=== PATIENT | female | born 1950 | race Caucasian/White ===

== ENCOUNTER → 2018-10-26 08:38 | Outpatient (CLI) | payer MEDICARE, OTHER, BC, SELFPAY ==
--- NOTE | 2018-10-26 | DI.MG.S_ITS ---
BILATERAL DIGITAL SCREENING MAMMOGRAM 3D/2D WITH CAD: 10/26/2018 CLINICAL: Routine screening. Family history of breast cancer. Comparison is made to exams dated: 10/05/2017 mammogram, 09/15/2016 mammogram, and 09/08/2015 mammogram - [facility]. The tissue of both breasts is extremely dense, which lowers the sensitivity of mammography. Current study was also evaluated with a Computer Aided Detection (CAD) system. There are benign calcifications in both breasts. There are mole markers on both breasts. No significant masses, calcifications, or other findings are seen in either breast. There has been no significant interval change. IMPRESSION: There is no mammographic evidence of malignancy. A 1 year screening mammogram is recommended. This exam was interpreted at Station ID: [id number]. NOTE: For mammograms, a report in lay terms will be sent to the patient. Approximately 15% of breast malignancies will not be visualized mammographically. In the management of a palpable breast mass, a negative mammogram must not discourage biopsy of a clinically suspicious lesion. Electronically Signed By: Harsha moore/shaquille:10/26/2018 19:16:55 letter sent: Normal Exam ACR BI-RADS Category 2: Benign Finding(s) 3342F
== END ==
PROVIDERS: Family Provider Family Medicine; PCP Family Medicine; Visit Provider Family Medicine
DX: Z12.31 Encounter for screening mammogram for malignant neoplasm of breast (principal); Z80.3 Family history of malignant neoplasm of breast
CPT/HCPCS: 77063; 77067

== ENCOUNTER 2019-04-16 09:37 | Day surgery (SDC) | payer MEDICARE, OTHER, SELFPAY ==
[2019-04-16] VITALS (9 sets, daily range): BP systolic 97–156; BP diastolic 43–72; PULSE 64–70; RESP 12–17; TEMP 35.8–36.5; O2SAT 95–99; BMI 28.0
--- NOTE | 2019-04-16 10:01 | PM.HP.1 ---
History of Present Illness Date Patient Seen: 04/16/19 Time Patient Seen: 10:02 Chief complaint: [id number] Narrative: 68-year-old woman presents for screening colonoscopy. Last colonoscopy 10 years ago no polyps detected. No family history of colon or rectal cancers. No family history of colon polyps. Prep went well No intestinal complaints Patient History Medical History (Updated 04/16/19 @ 10:03 by Porfirio Ayers MD) Diabetes mellitus (Acute) Hypertension (Acute) Surgical History (Updated 04/16/19 @ 10:04 by Porfirio Ayers MD) Hx of cataract surgery (Acute) Social History household members: spouse Meds Home Medications Medication Instructions Recorded Confirmed Type OMEPRAZOLE (Prilosec) 20 mg PO Q DAY #1 03/12/07 History [Lopressor] 25 mg PO SEE INSTRUCTIONS #30 06/27/16 Rx atorvastatin 20 mg PO BEDTIME 04/16/19 04/16/19 History losartan 50 mg PO DAILY 04/16/19 04/16/19 History metformin 500 mg PO BID 04/16/19 04/16/19 History Allergies Allergy/AdvReac Type Severity Reaction Status Date / Time Penicillins [PENICILLINS] Allergy Intermediate Verified 04/16/19 09:54 Review of Systems Constitutional Constitutional: Denies fever(s) Eyes Eyes: Denies bulging eyes ENT Ears, Nose, Mouth, and Throat: No lip swelling Cardiovascular Cardiovascular: Denies generalize swelling Respiratory Respiratory: Denies stridor Gastrointestinal Gastrointestinal: Denies coffee ground emesis Musculoskeletal Musculoskeletal: Denies loss of height Integumentary/Breasts Skin/Breast: Denies wounds Neurologic Neurologic: Denies abnormal speech and Denies confusion Psychiatric Psychiatric: Denies confusion Endocrine Endocrine: Denies deepening of the voice Hematologic/Lymphatic Hematologic/Lymphatic: Denies lymphadenopathy Allergic/Immunologic Allergic/Immunologic: Denies lip swelling Exam Const General: cooperative and healthy appearing Orientation: alert HENMT Head: normal to inspection Nose: nares normal Mouth: oral mucosae normal and lip normal Eyes Eyelids: eyelids normal Conjunctivae: conjunctivae normal Sclera: sclerae normal Neck Neck: supple and other (No thyromegally) Chest Chest: other (LCTAB , regular respiratory effort) Cardio Rhythm: regular rhythm Heart Sounds: S1 normal, S2 normal, no gallops, no murmurs and no rubs GI Other: Abdomen soft nontender nondistended Skin General: no rashes or lesions noted Neuro General: alert and awake Psych Appearance: grossly normal Affect: normal affect Assessment & Plan Assessment & Plan narrative: 68-year-old woman without history of colon polyps or family history of colon cancer presents 10 years after last screening colonoscopy Plan for screening colonoscopy today Risks and benefits including risk of , hypoxia, missed lesion, perforation all discussed All questions answered Patient ready to proceed
[2019-04-16] MEDS: SODIUM CHLORIDE 0.9% 1,000 ML 200 ML IV ×2 (10:22→11:26)
[2019-04-16] MEDS: GLUCAGON,HUMAN RECOMBINANT 1 MG/ML VIAL IV (11:32)
--- NOTE | 2019-04-16 12:09 | PM.OP.ENDO ---
Operative Date/Time/Diagnoses Date of procedure: 04/16/19 Time of procedure: 12:09 Pre-op diagnosis: Screening colonoscopy Post-op diagnosis: same Procedure & Clinicians Study performed: Screening colonoscopy -incomplete, to mid right colon, unable to visualize cecum. Same procedure as scheduled: Yes Indications: 68-year-old female 10 years out from last screening colonoscopy -no personal or family history of polyps or colorectal cancer Surgeon: Porfirio Ayers Procedure Notes SCOAP/Timeout: Completed Scope withdrawal time: NA Sedation minutes: 60 Impression: Patient was brought to the endoscopy suite time-out was completed. She was sedated with fentanyl and midazolam -over the course of what was a lengthy and difficult colonoscopy she received 350 mcg of fentanyl and 14 mg of midazolam. A digital rectal exam was performed without lesion. 160 cm colonoscope was advanced through the folds of the rectum sigmoid colon descending colon transverse colon. She had a very long markedly redundant colon. Upon reaching the hepatic flexure 160 cm of scope length would not reach further. The scope was withdrawn multiple times as far as the sigmoid colon at 1 point and readvanced. This produced some additional scope length to reach what appeared to be the mid right colon. The patient was positioned in the prone position, right and left decubitus position as well as supplying position. During the course of multiple attempts at readvanced. A scope stiffener was used as well. Two assistants were utilized to press on the abdomen to help reduce scope loops. This despite these multiple in the -I was never able to convincingly see the cecum. The scope was slowly withdrawn then -the mucosal surface of the transverse descending and sigmoid colon as well as the rectum are all well visualized. No lesions were identified. Scope was retroflexed in the distal rectum again no lesions were visualized. Prep for the visualized portion of the colon was adequate Recommendations: Colonscopy in 3 years Plan for aftercare: Double contrast barium enema planed Follow up: as needed Disposition: PACU
[2019-04-16] MEDS: MIDAZOLAM 5 MG/5 ML VIAL IV (12:11)
[2019-04-16] MEDS: fentaNYL 250 MCG/5 ML INJ IV (12:11)
== END 2019-04-16 13:28 | disposition home or self-care (01) ==
LOC: ENDO 09:39
PROVIDERS: PCP Family Medicine; Visit Provider Surgery
PROC: 0DJD8ZZ Inspection of Lower Intestinal Tract, Via Natural or Artificial Opening Endoscopic (ICD-10-PCS; CPT 45378; principal; 2019-04-16 10:45)
DX: Z12.11 Encounter for screening for malignant neoplasm of colon (principal); E11.9 Type 2 diabetes mellitus without complications; I10 Essential (primary) hypertension; Z79.84 Long term (current) use of oral hypoglycemic drugs
CPT/HCPCS: G0121; J1610; J2250; J3010

== ENCOUNTER → 2019-04-19 10:06 | Outpatient (CLI) | payer MEDICARE, OTHER, SELFPAY ==
--- NOTE | 2019-04-19 | DI.US.S_ITS ---
PROCEDURE: US CAROTID DOPPLER BI INDICATIONS: POST MENOPAUSAL/HYPERTENSION TECHNIQUE: Color and pulse Doppler interrogation was performed of both carotid systems, with image documentation and velocity measurements. COMPARISON: None. FINDINGS: Stenosis calculations are based on SRU (Society of Radiologists in Ultrasound) criteria. Right side: Brachial blood pressure: 131/76 mm Hg. Common carotid artery peak systolic velocity: 83 cm/sec. Internal carotid artery peak systolic velocity: 101 cm/sec. Internal carotid artery end diastolic velocity: 31 cm/sec. External carotid artery peak systolic velocity: 83 cm/sec. ICA/CCA peak systolic ratio: 1.21. Anderson scale imaging description: There are atherosclerotic plaques noted in the carotid bifurcation and proximal right internal carotid artery. Percent internal carotid artery stenosis: Less than 50% stenosis. Vertebral artery: Flow direction is antegrade. Left side: Brachial blood pressure: 128/75 mm Hg. Common carotid artery peak systolic velocity: 79 cm/sec. Internal carotid artery peak systolic velocity: 99 cm/sec. Internal carotid artery end diastolic velocity: 34 cm/sec. External carotid artery peak systolic velocity: 67 cm/sec. ICA/CCA peak systolic ratio: 1.25. Anderson scale imaging description: There is scattered atherosclerotic plaques identified in the common carotid artery, carotid bifurcation, and proximal right internal carotid artery. Less than 50% reduction in luminal diameter. Percent internal carotid artery stenosis: Less than 50% stenosis.. Vertebral artery: Flow direction is antegrade. 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 Dictated by: Saravanan Junior M.D. on 04/19/2019 at 12:56 Approved by: Saravanan Junior M.D. on 04/19/2019 at 13:04
== END ==
PROVIDERS: PCP Family Medicine; Visit Provider Family Medicine
DX: I65.23 Occlusion and stenosis of bilateral carotid arteries (principal); I10 Essential (primary) hypertension; Z78.0 Asymptomatic menopausal state; R29.890 Loss of height; E11.9 Type 2 diabetes mellitus without complications
CPT/HCPCS: 77080; 93880

== ENCOUNTER → 2019-05-22 10:32 | Outpatient (CLI) | payer MEDICARE, OTHER, SELFPAY ==
--- NOTE | 2019-05-22 10:36 | DI.RAD.S_ITS ---
PROCEDURE: FL BARIUM ENEMA W AIR CONTRAST INDICATIONS: failed colonoscopy COMPARISON: None. 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 No suspicious abdominal calcifications. Visualized solid organ contours are normal in size. No suspicious bony lesions. Colon: There is adequate air-contrast opacification from the rectum to the cecum. No strictures, ulcers, polyps, or masses are seen. Haustral folds are normal in thickness throughout. There is [id number] diverticulosis without acute diverticulitis. No area of diverticular inflammation is suspected IMPRESSION: Throughout the examination no mass lesion is seen nor is there evidence of stricture. The mild to moderate colonic diverticulosis present is not associated with evidence of inflammation. Study allowed visualization through the colon, which is redundant and elongated. Reflux of contrast into the terminal ileum was observed, which appears normal. Dictated by: Ajay Mendes M.D. on 05/22/2019 at 12:16 Approved by: Ajay Mendse M.D. on 05/22/2019 at 12:19
== END ==
PROVIDERS: PCP Family Medicine; Visit Provider Surgery
DX: R93.3 Abnormal findings on diagnostic imaging of other parts of digestive tract (principal); K57.90 Diverticulosis of intestine, part unspecified, without perforation or abscess without bleeding
CPT/HCPCS: 74280

== ENCOUNTER → 2019-11-28 16:01 | Outpatient (CLI) | payer MEDICARE, OTHER, SELFPAY ==
--- NOTE | 2019-11-28 | DI.MG.S_ITS ---
BILATERAL DIGITAL SCREENING MAMMOGRAM 3D/2D WITH CAD: 11/28/2019 CLINICAL: Routine screening. Family history of breast cancer. Comparison is made to exams dated: 10/26/2018 mammogram, 10/05/2017 mammogram, 09/15/2016 mammogram, 09/08/2015 mammogram, and 08/25/2014 mammogram - [facility]. The tissue of both breasts is extremely dense, which lowers the sensitivity of mammography. Current study was also evaluated with a Computer Aided Detection (CAD) system. There are benign calcifications in both breasts. There are mole markers on both breasts. No significant masses, calcifications, or other findings are seen in either breast. There has been no significant interval change. IMPRESSION: There is no mammographic evidence of malignancy. A 1 year screening mammogram is recommended. This exam was interpreted at Station ID: [id number]. NOTE: For mammograms, a report in lay terms will be sent to the patient. Approximately 15% of breast malignancies will not be visualized mammographically. In the management of a palpable breast mass, a negative mammogram must not discourage biopsy of a clinically suspicious lesion. Electronically Signed By: Miguel Ángel gonzáles/shaquille:11/28/2019 22:09:11 letter sent: Normal Exam ACR BI-RADS Category 2: Benign Finding(s) 3342F
== END ==
PROVIDERS: PCP Family Medicine; Referring Provider Family Medicine; Visit Provider Family Medicine
DX: Z12.31 Encounter for screening mammogram for malignant neoplasm of breast (principal); Z80.3 Family history of malignant neoplasm of breast
CPT/HCPCS: 77063; 77067

== ENCOUNTER → 2020-11-03 11:56 | Outpatient (CLI) | payer MEDICARE, BC, SELFPAY ==
--- NOTE | 2020-11-03 | DI.RAD.S_ITS ---
PROCEDURE: XR KNEE LT 3V INDICATIONS: LEFT KNEE PAIN S/P INJURY TECHNIQUE: 3 views of the knee were acquired. COMPARISON: [facility], , KNEE 3V RIGHT, 04/17/2013, 10:32. FINDINGS: Bones: No fractures or dislocations. Note is made of degenerative osteoarthritic joint space narrowing mild in severity at the medial and lateral compartments, and also lateral facet patellofemoral joint moderately severe joint space narrowing with near [id number] articulation laterally. No suspicious bony lesions. Soft tissues: No joint effusion. No suspicious soft tissue calcifications. IMPRESSION: Degenerative changes as discussed with osteoarthritic joint space narrowing mild at the tibial-fibular articulations but moderately severe at the lateral facet of the patellofemoral joint. No trauma Dictated by: Ajay Mendes M.D. on 11/03/2020 at 14:20 Approved by: Ajay Mendes M.D. on 11/03/2020 at 14:21
== END ==
PROVIDERS: PCP Family Medicine; Referring Provider Family Medicine; Visit Provider Family Medicine
DX: M25.562 Pain in left knee (principal); S89.92XA Unspecified injury of left lower leg, initial encounter; X58.XXXA Exposure to other specified factors, initial encounter
CPT/HCPCS: 73562

== ENCOUNTER 2021-02-03 13:15 | Emergency (ER) | payer MEDICARE, BC, SELFPAY ==
[2021-02-03] VITALS (7 sets, daily range): BP systolic 164–185; BP diastolic 73–88; PULSE 66–80; RESP 13–23; TEMP 36.4; O2SAT 97; BMI 28.2
--- NOTE | 2021-02-03 13:29 | DI.RAD.S_ITS ---
PROCEDURE: XR CHEST 2V INDICATIONS: shortness of breath TECHNIQUE: 2 views of the chest were acquired. COMPARISON: [facility], , CHEST 1 VIEW, 06/27/2016, 18:34. FINDINGS: Surgical changes and devices: None. Lungs and pleura: Lungs are clear. No pleural effusions or pneumothorax. Mediastinum: Mediastinal contours are normal. Heart size is normal. Bones and chest wall: No suspicious bony abnormalities. Soft tissues appear unremarkable. IMPRESSION: No evidence acute pulmonary process. Dictated by: Elmer Duong M.D. on 02/03/2021 at 14:26 Approved by: Elmer Duong M.D. on 02/03/2021 at 14:27
[2021-02-03 13:46] LABS: Add Manual Diff / Slide Review NO; Basophils Absolute Auto 0 /uL (0-100); Basophils Percent Auto 0.7 % (0-2); Eosinophils Absolute Auto 100 /uL (0-450); Eosinophils Percent Auto 1.4 % (2-4); Hematocrit 44.2 % (36-46); Hemoglobin 14.8 g/dL (12.0-16.0); Lymphocytes Absolute Auto 1900 /uL (1100-4500); Lymphocytes Percent Auto 25.7 % (25-40); Mean Corpuscular HGB Conc 33.4 % (30-36); Mean Corpuscular Hemoglobin 30.2 PG (26-34); Mean Corpuscular Volume 90.4 fL (80-100); Monocytes Absolute Auto 500 /uL (0-900); Monocytes Percent Auto 6.5 % (3-14); Neutrophils Absolute Auto 4700 /uL (1500-7000); Neutrophils Percent Auto 65.7 % (50-75); Platelet Count 147 X10^3/uL (150-400); Red Blood Cell Count 4.89 X10^6/uL (4.0-5.2); White Blood Cell Count 7.2 X10^3/uL (4.5-11.0)
[2021-02-03 13:55] LABS: Alanine Aminotransferase 23 IU/L (<35); Albumin Globulin Ratio 1.5 (1.0-2.8); Alkaline Phosphatase 101 U/L (38-126); Aspartate Aminotransferase 31 IU/L (14-36); Bilirubin Total 0.6 mg/dL (0.2-1.3); Blood Urea Nitrogen 19 mg/dL (7-17); Calcium 10.3 mg/dL (8.4-10.2); Carbon Dioxide 22 mmol/L (22-32); Chloride 104 mmol/L (98-107); Estimated Glomerular Filt Rate > 60.0 mL/min (>60); Globulin 3.4 g/dL (1.7-4.1); Glucose 171 mg/dL (80-110); HEMOLYSIS < 15 (0-50); Potassium 4.5 mmol/L (3.4-5.1); Sodium 137 mmol/L (137-145); Total Protein 8.4 g/dL (6.3-8.2)
[2021-02-03 14:03] LABS: NT-proBNP (BNP-Adult 18+) 46 pg/mL (<125)
--- NOTE | 2021-02-03 14:58 | ED_ITS ---
HPI - Arrhythmia/Palpitations General Chief Complaint: Arrhythmia/Palpitations Stated Complaint: hx of arrthymia/episode x2 days Time Seen by Provider: 02/03/21 14:34 Source: patient Mode of arrival: Ambulatory Limitations: no limitations History of Present Illness HPI narrative: 70-year-old woman with a history of diabetes, hyperlipidemia, hypertension, acid reflux disease on omeprazole and recently 2 months of m eloxicam for arthritic knee pain presents complaining that ?my body is yelling at me and I need help figuring out what is wrong?. She notes that over the last 5 days she has had an increasing ?brain fog? describes occasional dizziness, 4 days ago she had palpitations in the evening that has since resolved, she has had some chills but specifically denies fever, cough, nausea vomiting diarrhea, chest pain or dysuria. She had her 2nd COVID shot approximately a month ago and did not seem to have significant adverse reaction at the time. She notes no change to bowel habits and specifically no black stools. Related Data Home Medications Medication Instructions Recorded Confirmed OMEPRAZOLE (Prilosec) 20 mg PO Q DAY #1 03/12/07 04/16/19 atorvastatin 20 mg PO BEDTIME 04/16/19 04/16/19 losartan 50 mg PO DAILY 04/16/19 04/16/19 metformin 500 mg PO BID 04/16/19 04/16/19 Allergies Allergy/AdvReac Type Severity Reaction Status Date / Time Penicillins [PENICILLINS] Allergy Intermediate Verified 02/03/21 13:26 Review of Systems Review of Systems Narrative: Remainder of review is otherwise unremarkable Patient History Medical History (Updated 02/03/21 @ 16:57 by Tammy Hoang MD) Acid reflux Diabetes mellitus Hyperlipidemia Hypertension Surgical History (Updated 04/16/19 @ 10:04 by Porfirio Ayers MD) Hx of cataract surgery Social History household members: spouse Smoking Status: Unknown if ever smoked Smoking Status: Unknown if ever smoked alcohol intake frequency: a few times a week Substance Use Type: does not use Exam Narrative Exam Narrative: General: Mildly ill-appearing but in no acute distress. Able to give a complete and coherent history. Well-nourished well-developed HEENT: Moist mucous membranes, normal sclera with reactive pupils, Neck: No JVD, supple Respiratory: Lungs are clear to auscultation, no wheezing no rales no rhonchi. Full and symmetrical air movement Cardiac: Regular rate and rhythm no murmurs no bruits Abdomen: Soft, nontender, good bowel tones, no flank pain Skin: Pale but Warm and dry, no rashes Neurologic: Grossly neurologically intact with no obvious asymmetries or abnormalities Extremities: No trauma, well perfused Psych: Cooperative, appropriate insight and affect Initial Vital Signs Initial Vital Signs: Vital Signs Temperature 97.6 F 02/03/21 13:24 Pulse Rate 80 02/03/21 13:24 Respiratory Rate 15 02/03/21 13:24 Blood Pressure 185/88 H 02/03/21 13:24 Pulse Oximetry 97 02/03/21 13:24 Course Orders Ordered: ED Orders 02/03/21 13:29 XR chest 2V Stat EKG-12 Lead Stat Measure peak expiratory flow ONCE RT Consult Eval and Treat Now 02/03/21 13:34 Complete Blood Count AUTO DIFF Stat Comprehensive Metabolic Panel Stat Lactate (Lactic Acid) Stat NT-proBNP (BNP-Adult 18+) Stat Troponin I Stat Vital Signs Vital signs: Vital Signs - 8 hr 02/03/21 13:24 02/03/21 14:28 02/03/21 14:30 Temperature 97.6 F Pulse Rate 80 72 72 Respiratory Rate 15 23 22 Blood Pressure 185/88 H 182/79 H Pulse Oximetry 97 02/03/21 15:00 Temperature Pulse Rate 68 Respiratory Rate 15 Blood Pressure 173/79 H Pulse Oximetry MDM - Arrhythmia/Palpitations Medical Records Attestation: I reviewed the patient's medical records. Lab Data Attestation: I reviewed the patient's lab results. Result diagrams: 02/03/21 13:34 02/03/21 13:34 Labs: Lab Results 02/03/21 02/03/21 02/03/21 Range/Units 13:34 13:34 13:34 WBC 7.2 (4.5-11.0) X10^3/uL RBC 4.89 (4.0-5.2) X10^6/uL Hgb 14.8 (12.0-16.0) g/dL Hct 44.2 (36-46) % MCV 90.4 (80-100) fL MCH 30.2 (26-34) PG MCHC 33.4 (30-36) % RDW 14.0 (11.6-14.8) % Plt Count 147 L (150-400) X10^3/uL Neut % (Auto) 65.7 (50-75) % Lymph % (Auto) 25.7 (25-40) % [place] % (Auto) 6.5 (3-14) % Eos % (Auto) 1.4 L (2-4) % Baso % (Auto) 0.7 (0-2) % Neut # (Auto) 4700 (7347-6825) /uL Lymph # (Auto) 1900 (0772-0028) /uL [place] # (Auto) 500 (0-900) /uL Eos # (Auto) 100 (0-450) /uL Baso # (Auto) 0 (0-100) /uL Sodium 137 (137-145) mmol/L Potassium 4.5 (3.4-5.1) mmol/L Chloride 104 (98-107) mmol/L Carbon Dioxide 22 (22-32) mmol/L BUN 19 H (7-17) mg/dL Creatinine 0.76 (0.52-1.04) mg/dL Estimated GFR > 60.0 (>60) mL/min BUN/Creatinine Ratio 25.0 H (6-22) Glucose 171 H (80-110) mg/dL Lactate 1.0 (0.7-2.1) mmol/L Calcium 10.3 H (8.4-10.2) mg/dL Total Bilirubin 0.6 (0.2-1.3) mg/dL AST 31 (14-36) IU/L ALT 23 (<35) IU/L Alkaline Phosphatase 101 (38-126) U/L Troponin I (0.01-0.034) ng/mL NT-Pro-B Natriuret Pep 46 (<125) pg/mL Total Protein 8.4 H (6.3-8.2) g/dL Albumin 5.0 (3.5-5.0) g/dL Globulin 3.4 (1.7-4.1) g/dL Albumin/Globulin Ratio 1.5 (1.0-2.8) 02/03/21 Range/Units 13:34 WBC (4.5-11.0) X10^3/uL RBC (4.0-5.2) X10^6/uL Hgb (12.0-16.0) g/dL Hct (36-46) % MCV (80-100) fL MCH (26-34) PG MCHC (30-36) % RDW (11.6-14.8) % Plt Count (150-400) X10^3/uL Neut % (Auto) (50-75) % Lymph % (Auto) (25-40) % [place] % (Auto) (3-14) % Eos % (Auto) (2-4) % Baso % (Auto) (0-2) % Neut # (Auto) (8119-0606) /uL Lymph # (Auto) (8503-1828) /uL [place] # (Auto) (0-900) /uL Eos # (Auto) (0-450) /uL Baso # (Auto) (0-100) /uL Sodium (137-145) mmol/L Potassium (3.4-5.1) mmol/L Chloride (98-107) mmol/L Carbon Dioxide (22-32) mmol/L BUN (7-17) mg/dL Creatinine (0.52-1.04) mg/dL Estimated GFR (>60) mL/min BUN/Creatinine Ratio (6-22) Glucose (80-110) mg/dL Lactate (0.7-2.1) mmol/L Calcium (8.4-10.2) mg/dL Total Bilirubin (0.2-1.3) mg/dL AST (14-36) IU/L ALT (<35) IU/L Alkaline Phosphatase (38-126) U/L Troponin I < 0.012 (0.01-0.034) ng/mL NT-Pro-B Natriuret Pep (<125) pg/mL Total Protein (6.3-8.2) g/dL Albumin (3.5-5.0) g/dL Globulin (1.7-4.1) g/dL Albumin/Globulin Ratio (1.0-2.8) Imaging Data Chest x-ray: Radiologist's Impresson: FINDINGS: Surgical changes and devices: None. Lungs and pleura: Lungs are clear. No pleural effusions or pneumothorax. Mediastinum: Mediastinal contours are normal. Heart size is normal. Bones and chest wall: No suspicious bony abnormalities. Soft tissues appear unremarkable. IMPRESSION: No evidence acute pulmonary process. Dictated by: Elmer Duong M.D. on 02/03/2021 at 14:26 ECG Data Attestation: I personally reviewed and interpreted this ECG as follows: Interpretation: sinus rhythm at a rate of 75 Mild left axis deviation LVH by criteria in lead aVL No acute ischemic changes MDM Narrative Medical decision making narrative: 70-year-old woman with nonspecific symptoms of generally not feeling well over the last few days. Physical exam is reassuring. There is no evidence of stroke, infection, acute coronary syndrome or congestive heart failure. She does describe heart palpitations not associated with dyspnea, chest pain or diaphoresis that lasted only a few minutes. This was 4 days ago and has not recurred. At this point I am not finding no life-threatening explanation for her symptoms and you believe that she is safe for discharge home from the emergency department. I have encouraged her to follow-up with her primary care physician particularly if she continues to have symptoms. The next step may be more thorough neurologic evaluation. She is safe for home discharge Discharge Plan Departure Patient Disposition: Home Clinical Impression: Malaise and fatigue, Palpitations Instructions: DI for Arrhythmias Activity Restrictions/Additional Instructions: Thank you for coming in today Your workup was very reassuring. I found no evidence for any type of infection, acute heart attack or acute heart syndromes, no congestive heart failure and no problems with kidney function, liver function or electrolytes. Your clinical exam does not suggest any evidence of stroke. Unfortunately, I do not have a full explanation for the symptoms that you have been experiencing for the last couple of days. Please do follow-up with your new primary care physician. If you find that you are having worsening symptoms, new or localizing complaints or other issues, please feel free to return to the emergency department Prescriptions: No Action OMEPRAZOLE (Prilosec) 20 mg PO Q DAY Qty: 1 RF: 0 metformin 500 mg Tablet 500 mg PO BID RF: 0 atorvastatin 20 mg Tablet 20 mg PO BEDTIME RF: 0 losartan 50 mg Tablet 50 mg PO DAILY RF: 0 Referrals: Marlene Hunter MD [Primary Care Provider] -
[2021-02-03 16:07] LABS: Troponin I < 0.012 ng/mL (0.01-0.034)
== END 2021-02-03 17:11 | disposition home or self-care (01) ==
PROVIDERS: Emergency Medicine; Emergency Provider Emergency Medicine; PCP Family Medicine
DX: R00.2 Palpitations (principal); R53.81 Other malaise; R06.02 Shortness of breath
CPT/HCPCS: 36415; 71046; 80053; 83605; 83880; 84484; 85025; 93005; 93010; 99283; 99284

== ENCOUNTER → 2021-06-08 15:59 | Outpatient (CLI) | payer MEDICARE, BC, SELFPAY ==
--- NOTE | 2021-06-08 | DI.ECHO.S_ITS ---
[facility]---------+ [facility] +---------+ : : [address] : [address] : : : : [id number] : : : : Phone: [phone]---------+ Echocardiogram Report + + :Name: JEROME CEDEÑO Study Date: 06/08/2021 Height: 66 in : :[facility] ReadingLocation: Weight: 178 lb : : Gender: Female BSA: 1.9 m2 : :: 1950 Age: 70 yrs BP: 164/90 mmHg: :Reason For Study: MITRAL INSUFFICIENCY : :Ordering Physician: LULU, : :KHALIF Performed By: Amanda De La Rosa : :Referring: KHALIF BEVERLY : + + Interpretation Summary 1) Normal left ventricular thickness, size, wall motion, and systolic function (EF 55-60%). 2) Normal right ventricular size and function. 3) There is mild mitral regurgitation. There is trace aortic regurgitation. 4) Compared to the Echo done 03/28/2018, no significant change. Procedure: A two-dimensional transthoracic echocardiogram with color flow and Doppler was performed. The study quality was technically adequate. Comparison is made with the echocardiogram of 03/28/2018. The patient was in sinus rhythm with heart rates between 70-80 bpm during the exam. Left Ventricle: The left ventricle is normal in size and wall thickness. The ejection fraction is estimated to be 55-60%. Left ventricular systolic function appears normal without focal wall motion abnormalities. Diastolic parameters suggest probable normal left ventricular diastolic function and normal filling pressures. Right Ventricle: The right ventricle is normal in size and function. Atria: The left atrial size is normal. Right atrial size is normal. There is no Doppler evidence for an interatrial shunt. Mitral Valve: The mitral valve is normal in structure and function. There is mild mitral annular calcification. There is mild mitral regurgitation. Aortic Valve: The aortic valve is grossly normal. There is no aortic valve stenosis. There is trace aortic regurgitation. Tricuspid Valve: The tricuspid valve is normal in structure and function. There is mild tricuspid regurgitation. Pulmonary artery pressures cannot be estimated because of the lack of a measurable TR jet velocity but the IVC suggests a CVP of around 19 mmHg. Pulmonic Valve: The pulmonic valve is not well seen, but is grossly normal. There is no pulmonic valvular regurgitation. Great Vessels: The aortic root is normal size. The dimensions of the ascending aorta are normal. The IVC is of normal diameter and collapses greater than 50% with a sniff. This suggests a low right atrial pressure of 3 mm Hg. Pericardium/ Pleura There is no pericardial effusion. There is no pleural effusion. MMode/2D Measurements & Calculations LVIDd: 4.7 cm LVOT diam: 2.0 cm LVIDs: 3.4 cm Ao root diam: 2.8 cm FS: 27.5 % asc Aorta Diam: 3.0 cm IVSd: 0.72 cm Ao Arch Diam (Prox Trans): 2.3 cm LVPWd: 0.80 cm LV [place]. diameter/BSA (cm/m^2): 2.4 LV sys. diameter/BSA (cm/m^2): 1.8 LA A2 area: 17.5 cm2 RA long axis: 4.7 cm LA A4 area: 15.6 cm2 RA area: 15.2 cm2 LA length (vol): 4.8 cm RA vol: 41.8 ml LA vol: 47.8 ml RA : 22.0 ml/m2 LA vol index: 25.1 ml/m2 IVC diam: 1.1 cm RVD1 (basal): 3.2 cm TAPSE: 2.1 cm Doppler Measurements & Calculations Ao V2 max: 148.2 cm/sec LVOT Max Shayne: 102.9 cm/sec Ao V2 mean: 107.5 cm/sec LV V1 max P.2 mmHg Ao max P.8 mmHg LV V1 VTI: 23.6 cm Ao mean P.1 mmHg DEAN(I,D): 2.7 cm2 Ao V2 VTI: 27.0 cm DEAN(V,D): 2.1 cm2 sev ratio: 0.87 DEAN indexed to BSA (cm^2/m^2): 1.4 MV E max shayne: 63.9 cm/sec TR max shayne: 199.8 cm/sec MV A max shayne: 85.4 cm/sec TR max P.0 mmHg MV E/A: 0.75 PA V2 max: 94.7 cm/sec Med Peak E' Shayne: 6.6 cm/sec PA V2 mean: 73.1 cm/sec E/E' med: 9.7 PA mean P.3 mmHg Lat Peak E' Shayne: 9.5 cm/sec PA pr(Accel): 13.9 mmHg E/E' lat: 6.7 E/e' average: 8.2 MV dec time: 0.26 sec SV(LVOT): 71.8 ml Reading Physician:05:15 PM
== END ==
PROVIDERS: PCP Family Medicine; Referring Provider Internal Medicine Cardiovascular Disease; Visit Provider Internal Medicine Cardiovascular Disease
DX: I34.0 Nonrheumatic mitral (valve) insufficiency (principal); I35.1 Nonrheumatic aortic (valve) insufficiency
CPT/HCPCS: 93306

== ENCOUNTER → 2021-08-02 08:32 | Outpatient (CLI) | payer MEDICARE, BC, SELFPAY ==
--- NOTE | 2021-08-02 | DI.MG.S_ITS ---
BILATERAL DIGITAL SCREENING MAMMOGRAM 3D/2D WITH CAD: 08/02/2021 CLINICAL: Routine screening. Family history of breast cancer. Comparison is made to exams dated: 11/28/2019 mammogram, 10/26/2018 mammogram, 10/05/2017 mammogram, 09/15/2016 mammogram, and 09/08/2015 mammogram - [facility]. The tissue of both breasts is extremely dense, which lowers the sensitivity of mammography. Current study was also evaluated with a Computer Aided Detection (CAD) system. There are benign calcifications in both breasts. There are mole markers on both breasts. No significant masses, calcifications, or other findings are seen in either breast. There has been no significant interval change. IMPRESSION: BENIGN There is no mammographic evidence of malignancy. A 1 year screening mammogram is recommended. This exam was interpreted at Station ID: [id number]. NOTE: For mammograms, a report in lay terms will be sent to the patient. Approximately 15% of breast malignancies will not be visualized mammographically. In the management of a palpable breast mass, a negative mammogram must not discourage biopsy of a clinically suspicious lesion. Electronically Signed By: Miguel Ángel gonzáles/shaquille:08/02/2021 09:00:54 letter sent: Normal Exam ACR BI-RADS Category 2: Benign Finding(s) 3342F
== END ==
PROVIDERS: PCP Family Medicine; Referring Provider Family Medicine; Visit Provider Family Medicine
DX: Z12.31 Encounter for screening mammogram for malignant neoplasm of breast (principal); Z80.3 Family history of malignant neoplasm of breast
CPT/HCPCS: 77063; 77067

== ENCOUNTER → 2022-03-09 13:39 | Outpatient (CLI) | payer MEDICARE, BC, SELFPAY ==
--- NOTE | 2022-03-10 17:20 | DIAB.MNT ---
Initial Diabetes Medical Nutrition Therapy Assessment Name: Rachel Vo Date: 03/09/22 Time: 145-3p Dx: Type II Diabetes Provider: Chalino Preferred Learning Style: Listening, watching, reading, hands-on Rachel presents today for initial visit regarding T2DM. Reports completing full DSME program at [facility] a few years ago. States she has had diabetes for <10 years. 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 States she is unclear why her HgA1c increased. Describes health conscious meals. Seems to avoid certain foods based on glycemic index vs glycemic load. Reports intentional wt loss with [employer] program in 2019 (no dairy, no sugar, no ETOH). Was happy with wt loss (160# wt), but since then has re-gained. Reports decreased physical activity and possibly more sugar in recent months. Diet Recall: 8a: egg, veggies, cheese, smoked salmon, 1c berries or melon with spoon of low carb yogurt (avoids grapefruit, watermelon and apples) 1030-11a: half bagel with cream cheese or smoked salmon or tuna 2-330p: veggies or nuts 6-730p: veggies and PRO +/- 1/3-1/2c rice or noodles Beverages; water, green tea Anthropometrics: Ht: 66 Wt: 179# reported Physical Activity: Reports walking 10min daily. use to walk for 45 min or more. gardens. Self-Monitoring Blood Glucose: Only checking FB-130 mg/dL -- all in goal. Based on HgA1c, likely having elevations later in the day. Diabetes Medications: 500 mg Metformin BID (per referral, rx 1000mg in am and 500mg in pm) Pertinent Labs: HgA1c 7.5% 12/2021 (up from 6.9%) Past Medical History: (Last Updated 02/03/21 @ 15:00 by Tammy Hoang MD) Acid reflux Diabetes mellitus Hx of cataract surgery Hyperlipidemia Hypertension Nutrition Rx: Carbohydrates: Meal: up to 30-45g Snack:15-30g Nutrition Diagnosis: - Nutrition and food related knowledge deficit r/t needing more info on carb content vs glycemic index aeb diet recall and pt report - Suboptimal physical activity r/t previous dog passed and walking reduced as a result aeb pt report - Self monitoring deficit r/t knowledge deficit regarding checking BG later in the day aeb only FBG to review and in goal Intervention: This participant was very receptive. Provided appropriate educational handouts. Discussed the following topics: Completed intake assessment. Discussed barriers to care. Pathophysiology of T2DM Importance of self-monitoring, how often, and when to check. Suggested checking at different times to evaluate meals carb counting review glycemic index vs glycemic load Medication management and rx ; action of Metformin Role of physical activity and following guidelines for safety Created SMART goals for patient self-care and success. Goals: Take Metformin as rx'd Take Metformin with food check some 1-2 hour pc readings walk 20 minutes min per day Follow-up: ANA GRULLON follow-up in 3-4 weeks Krista Duran RDN, YADI Certified Diabetes Care and Kennel Staff Member P: [phone] Thank you for this referral
== END ==
PROVIDERS: PCP Family Medicine; Referring Provider Family Medicine; Visit Provider Family Medicine
DX: E11.9 Type 2 diabetes mellitus without complications (principal); Z79.84 Long term (current) use of oral hypoglycemic drugs; Z71.3 Dietary counseling and surveillance
CPT/HCPCS: 97802

== ENCOUNTER → 2022-03-22 15:44 | Outpatient (CLI) | payer MEDICARE, BC, SELFPAY ==
--- NOTE | 2022-03-22 15:46 | DI.RAD.S_ITS ---
PROCEDURE: XR RIBS RT MIN 3V W CXR 1V INDICATIONS: R rib pain TECHNIQUE: 3 views of the right ribs were acquired, along with a single view chest. COMPARISON: None. FINDINGS: Surgical changes and devices: None. Bones and chest wall: No fractures or dislocations. No suspicious bony lesions. Overlying soft tissues appear unremarkable. Lungs and pleura: No pleural effusions or pneumothorax. Lungs appear clear. Mediastinum: Mediastinal contours appear normal. Heart size is normal. IMPRESSION: Unremarkable right rib radiographs Approved by: Jeferson Campa M.D. on 03/22/2022 at 16:15
== END ==
PROVIDERS: PCP Family Medicine; Referring Provider Physician Assistant; Visit Provider Physician Assistant
DX: S29.9XXA Unspecified injury of thorax, initial encounter (principal); X58.XXXA Exposure to other specified factors, initial encounter
CPT/HCPCS: 71101

== ENCOUNTER → 2022-05-12 11:00 | Outpatient (CLI) | payer MEDICARE, BC, SELFPAY ==
--- NOTE | 2022-05-19 16:33 | DIAB.FU ---
Follow-up Diabetes Education Assessment Name: Rachel Vo Date: 05/12/22 Time: -2037x Dx: Type II Diabetes Rachel presents for follow-up via [employer] platform. Reports she has increased Metformin to rx dose as discussed. No reported SE. Reports she has been working on staying well hydrated with hot weather. States she has been enjoying checking BG and seeing how different foods impact her numbers. Has not tried pairing carbs/pro for snacks as discussed last visit. Avoiding fresh corn, even in moderation despite loving it. Completed dental visit three days ago. Sees coronary clinical specialist regularly d/t glaucoma (which seems to be well managed per report). Endorses good foot care, wears slippers with a sole, takes shoes off at PCP visits. Unsure what to look for in daily foot checks. Physical Activity: Gardening. Walking q other day gardening with hills and carrying materials. No official walking program. Plans to restart walking with new dog, especially in cooler weather. Self-Monitoring Blood Glucose: Reports FBG usually 120-140 mg/dL. Postprandial often 160-180 mg/dL. No BG >180 mg/dL. Diabetes Medications: 1000mg in am and 500mg in pm Metformin Pertinent Labs: HgA1c 7.5% 12/2021 (up from 6.9%) Past Medical History: (Last Reviewed 03/22/22 @ 15:22 by Cathie Blevins PA-C) Acid reflux Diabetes mellitus Hyperlipidemia Hypertension Intervention: This participant was very receptive. Provided appropriate educational handouts. Discussed the following topics: Recent blood sugar results and trends Medication management Review of general nutrition recommendations and current intake, pairing macronutrients Physical activity plan and impact on blood sugars Prevention of complications: foot care, dental and eye appointments, kidney and heart health, neuropathy Created SMART goals for patient self-care and success. Goals: Take Metformin as rx'd- met Take Metformin with food- met check some 1-2 hour pc readings- met walk 20 minutes min per day - in progress Try adding fruit with protein- new Try having corn with a meal - new Follow-up: ANA GRULLON follow-up in 3-4 months as requested by Rachel. Krista Duran, ANA, YADI Certified Diabetes Care and Event Management Consultant P: [phone] Thank you for this referral
== END ==
PROVIDERS: PCP Family Medicine; Referring Provider Family Medicine; Visit Provider Family Medicine
DX: E11.9 Type 2 diabetes mellitus without complications (principal); Z71.3 Dietary counseling and surveillance
CPT/HCPCS: G0108

== ENCOUNTER → 2022-08-11 07:42 | Outpatient (CLI) | payer MEDICARE, BC, SELFPAY ==
--- NOTE | 2022-08-11 | DI.MG.S_ITS ---
BILATERAL DIGITAL SCREENING MAMMOGRAM 3D/2D WITH CAD: 08/11/2022 CLINICAL: Routine screening. Family history of breast cancer. Comparison is made to exams dated: 08/02/2021 mammogram, 11/28/2019 mammogram, and 10/26/2018 mammogram - [facility]. Both breasts are extremely dense, which lowers the sensitivity of mammography (category d />75% glandular tissue). Current study was also evaluated with a Computer Aided Detection (CAD) system. There are benign calcifications in both breasts. There are mole markers on both breasts. No significant masses, calcifications, or other findings are seen in either breast. There has been no significant interval change. IMPRESSION: BENIGN There is no mammographic evidence of malignancy. A 1 year screening mammogram is recommended. Based on Tyrer-Cuzick model (a risk assessment model), the patient's lifetime risk is 24.0% and her 10 year risk is 18.4%. If a patient has an elevated risk, a more comprehensive evaluation should be considered and/or a referral to a genetic counselor. The [place] [employer] Society, [place] [employer], and NCCN Guidelines advise the consideration of Breast MRI as an adjunct to screening mammography in patients whose Lifetime risk to develop breast cancer is 20% or higher. This exam was interpreted at Station ID: [id number]. NOTE: For mammograms, a report in lay terms will be sent to the patient. Approximately 15% of breast malignancies will not be visualized mammographically. In the management of a palpable breast mass, a negative mammogram must not discourage biopsy of a clinically suspicious lesion. Electronically Signed By: Dyllan graf/shaquille:08/11/2022 15:46:40 letter sent: Normal Exam ACR BI-RADS Category 2: Benign Finding(s) 3342F
== END ==
PROVIDERS: PCP Family Medicine; Referring Provider Family Medicine; Visit Provider Family Medicine
DX: Z12.31 Encounter for screening mammogram for malignant neoplasm of breast (principal); Z80.3 Family history of malignant neoplasm of breast
CPT/HCPCS: 77063; 77067

== ENCOUNTER → 2022-11-09 16:07 | Outpatient (CLI) | payer MEDICARE, BC, SELFPAY ==
--- NOTE | 2022-11-23 16:18 | DIAB.MNTFU ---
Follow-up Diabetes Medical Nutrition Therapy Assessment Name: Rachel Vo Date: 11/09/22 Time: 990-0784x Dx: Type II Diabetes Rachel presents for follow-up diabetes visit. States she is trying to eat more sensibly and mindfully. Cut out ETOH and increased veggies. Choosing higher fiber fruits. Has been pairing pro with fruit as discussed last visit. Diet Recall: 8am: veggies, eggs, salsa, feta, 3/4-1c berries 1230-1p: leftovers, salmon, broccoli slaw or steamed veggies 3p: 1/2c nuts 6-630p: grilled chicken, mixed veggies, sometimes brown rice noodles (40g) sn: nothing or nuts Beverages; 90-120oz water, 16oz green tea Anthropometrics: Wt: no new weights Physical Activity: gardening year round Self-Monitoring Blood Glucose: FBG 90-100mg/dl Diabetes Medications: 1000mg in am and 500mg in pm Metformin Pertinent Labs: HgA1c 7.5% 12/2021 (up from 6.9%), plans for new labs this month Past Medical History: (Last Reviewed 03/22/22 @ 15:22 by Cathie Blevins PA-C) Acid reflux Diabetes mellitus Hyperlipidemia Hypertension Nutrition Rx: Carbohydrates: Meal: up to 30-45g Snack:15-30g Nutrition Diagnosis: - Nutrition and food related knowledge deficit r/t needing more info on carb content vs glycemic index aeb diet recall and pt report- improved - Suboptimal physical activity r/t previous dog passed and walking reduced as a result aeb pt report- in progress - Self monitoring deficit r/t knowledge deficit regarding checking BG later in the day aeb only FBG to review and in goal- no change Intervention: This participant was very receptive. Provided appropriate educational handouts. Discussed the following topics: HgA1c review and goal BG goals per ADA and AACE Mindful eating Fiber intake Created SMART goals for patient self-care and success. Goals: Try adding fruit with protein- met Try having corn with a meal - met Follow-up: ANA GRULLON follow-up prn. Rachel seems to be making sustainable lifestyle changes she enjoys. Plans for a new hgA1c. Encouraged her to call with questions or future follow-up needs. Krista Duran RDN, YADI Certified Diabetes Care and Motor Bus Driver P: [phone] Thank you for this referral
== END ==
PROVIDERS: PCP Family Medicine; Referring Provider Family Medicine; Visit Provider Family Medicine
DX: E11.9 Type 2 diabetes mellitus without complications (principal); Z79.84 Long term (current) use of oral hypoglycemic drugs; Z71.3 Dietary counseling and surveillance
CPT/HCPCS: 97803

== ENCOUNTER 2023-01-26 11:58 | Day surgery (SDC) | payer MEDICARE, BC, SELFPAY ==
--- NOTE | 2023-01-26 | PATH_ITS ---
[facility] Accession Number: [id number] No. of containers..03 Tissue . 01 Material submitted: . PART A: colon - DESCENDING COLON POLYP PART B: colon - ILEOCECAL POLYP X2 PART C: body - POSSIBLE INVERTED APPENDIX . 01 Diagnosis: A. Descending Colon Polyp, Biopsy: Hyperplastic polyp. . B. Ileocecal Polyps, Biopsy: Fragment of colonic mucosa with small benign lymphoid aggregate. No dysplasia or neoplasia identified. . C. Specimen Designated Possible Inverted Appendix, Biopsy: Colonic mucosa with no diagnostic abnormality. Negative for active, chronic, and microscopic colitis. Negative for dysplasia and malignancy. [facility] 01/30/2023 1201 Local . 01 Electronically signed: . Odalys Helton MD, Pathologist NPI- [id number] . 01 Gross description: . Part A: DESCENDING COLON POLYP: Received in formalin is 1 fragment(s) of sarah, soft tissue measuring 0.3 x 0.3 x 0.1 cm submitted entirely in 1 cassette(s) Part B: ILEOCECAL POLYP X2: Received in formalin is 1 fragment(s) of sarah, soft tissue measuring 0.3 x 0.1 x 0.1 cm submitted entirely in 1 cassette(s) Part C: POSSIBLE INVERTED APPENDIX: Received in formalin are 2 fragment(s) of sarah, soft tissue measuring 0.3 x 0.1 x 0.1 cm to 0.2 x 0.2 x 0.1 cm submitted entirely in 1 cassette(s) /CPE 01/27/2023 0707 Local . 01 Pathologist provided ICD-10: D12.4, K63.89 . 01 CPT . 462871, 591756, 581072 Specimen Comment: A courtesy copy of this report has been sent to [facility] Pathology Performed at: 01 [facility] [address], [place], [place] [id number] MD Aden iVvas MD Phone: [phone]
[2023-01-26 12:27] VITALS: BP 184/89; PULSE 74; RESP 20; TEMP 36.8; O2SAT 96; BMI 27.1
[2023-01-26] MEDS: LACTATED RINGERS 1,000 ML 150 ML IV (12:51)
--- NOTE | 2023-01-26 14:03 | P.HP_ITS ---
History of Present Illness History of Present Illness Date Patient Seen: 01/26/23 Chief complaint: Colonoscopy Narrative: Ms. Vo presents for screening colonoscopy. She is had 1 before and this was 3-4 years ago at [facility]. She has no family history of colon cancer and her last colonoscopy they found no polyps but they could not get through to the end of her colon. She did undergo a CT colonography but was told to follow up sooner than 10 years. [facility] Medical History Acid reflux Diabetes mellitus Hyperlipidemia Hypertension Surgical History Hx of cataract surgery Social History household members: spouse Smoking Status: Never smoker Meds Home Medications and Allergies Home Medications Medication Instructions Recorded Confirmed Type OMEPRAZOLE (Prilosec) 20 mg PO Q DAY ##1 03/12/07 01/26/23 History metformin 500 mg tablet 500 mg PO BID 04/16/19 01/26/23 History Allergies Allergy/AdvReac Type Severity Reaction Status Date / Time Penicillins [PENICILLINS] Allergy Intermediate Verified 01/26/23 12:17 Exam Vital Signs (past 8 hours): - 01/26/23 12:27 Temperature 98.3 F Pulse Rate 74 Respiratory Rate 20 Blood Pressure 184/89 H Pulse Oximetry 96 Oxygen Delivery Method Room Air Oxygen Delivery Method Room Air Const General: cooperative, healthy appearing and comfortable Eyes General: appearance normal, both eyes and all related structures Resp Effort & Inspection: normal respiratory effort and able to speak in complete sentences GI Palpation: soft and No tender Assessment & Plan Assessment & Plan narrative: Presents today for screening colonoscopy I discussed the risks benefits and alternatives including but not limited to perforation of the colon and an inc omplete exam she fully understands these risks and would like to proceed.
[2023-01-26 15:00] VITALS: BP 144/78; PULSE 70; RESP 20; TEMP 36.6; O2SAT 96
[2023-01-26 15:05] VITALS: BP 143/79; PULSE 66; RESP 18; TEMP 36.6; O2SAT 96
[2023-01-26 15:14] VITALS: BP 162/92; PULSE 68; RESP 19; TEMP 36.5; O2SAT 98
--- NOTE | 2023-01-26 15:15 | P.OP.COLON_ITS ---
Operative Date/Time/Diagnoses Date of procedure: 01/26/23 Pre-op diagnosis: Colon cancer screening and history of incomplete exam. Post-op diagnosis: same Procedure & Clinicians Study performed: Colonoscopy and biopsy Same procedure as scheduled: Yes Indications: Colon cancer screening and history of incomplete exam Surgeon: Ashley Ma Procedure Notes Procedure in detail: Patient was taken to the endoscopy suite and placed in a left lateral decubitus position. A time-out was performed. With the help of anesthesiology provider conscious sedation was induced and monitored throughout the case. Digital rectal exam was performed and there were no masses or strictures. The colonoscope was then introduced into the anal canal and advanced through to the cecum. There were many tortuous turns within the sigmoid and transverse colon however with abdominal pressure the cecum was reached. The prep was good [place] bowel prep score of 2. A photograph was obtained of the cecum. It appeared as though possibly the appendiceal orifice was inverted. There was a small polyp on the mucosa overlying this lesion. Again this was photographed. There was a 2nd polyp and within the cecum that was removed and biopsied as well. The scope was then withdrawn. Withdrawal time was 24 minutes. Within the descending colon 3rd small polyp was seen and removed. The remainder of the exam just revealed some small scattered sigmoid diverticula and was otherwise unr emarkable. Tolerated the procedure well and went in good condition to the postoperative care unit
[2023-01-26 15:17] VITALS: BP 174/86; PULSE 62; RESP 18; TEMP 36.8; O2SAT 96
[2023-01-26 15:25] VITALS: BP 176/86
--- NOTE | 2023-01-26 15:58 | SUR.PHASEII ---
Yefri Corea CRNA notified BP 176/86. Patient to recheck at home and f/u with PCP if BP remains elevated. Patient and spouse notified.
== END 2023-01-26 15:47 | disposition home or self-care (01) ==
PROVIDERS: Surgery; PCP Family Medicine; Referring Provider Surgery; Visit Provider Surgery
PROC: 0DJD8ZZ Inspection of Lower Intestinal Tract, Via Natural or Artificial Opening Endoscopic (ICD-10-PCS; CPT 45378; principal; 2023-01-26 12:30)
DX: Z12.11 Encounter for screening for malignant neoplasm of colon (principal); K57.30 Diverticulosis of large intestine without perforation or abscess without bleeding; K63.5 Polyp of colon
CPT/HCPCS: 45380; 82962; J2704

== ENCOUNTER → 2023-03-09 08:26 | Outpatient (CLI) | payer MEDICARE, BC, SELFPAY ==
--- NOTE | 2023-03-09 | DI.RAD.S_ITS ---
PROCEDURE: XR KNEE RT 3V INDICATIONS: right knee pain TECHNIQUE: 3 views of the knee were acquired. COMPARISON: [facility], CR, XR KNEE LT 3V, 11/03/2020, 12:13. FINDINGS: Bones: No fractures or dislocations. No suspicious bony lesions. Moderate tricompartmental degenerative changes of the right knee with prominent marginal osteophytes. There is joint space narrowing of the medial femorotibial compartment. Soft tissues: No joint effusion. No suspicious soft tissue calcifications. IMPRESSION: Right knee without acute fracture or dislocation. Moderate tricompartmental osteoarthrosis of the right knee. Dictated by: Saravanan Junior M.D. on 03/09/2023 at 9:58 Approved by: Saravanan Junior M.D. on 03/09/2023 at 9:59
== END ==
PROVIDERS: PCP Family Medicine; Referring Provider Family Medicine; Visit Provider Family Medicine
DX: M19.90 Unspecified osteoarthritis, unspecified site (principal)
CPT/HCPCS: 73562

== ENCOUNTER → 2023-09-01 08:04 | Outpatient (CLI) | payer MEDICARE, BC, SELFPAY ==
--- NOTE | 2023-09-01 08:06 | DI.RAD.S_ITS ---
PROCEDURE: XR FEMUR RT MIN 2V INDICATIONS: Fall Bruising TECHNIQUE: 2 views of the femur were acquired. COMPARISON: None. FINDINGS: Bones: No fractures or dislocations. No suspicious bony lesions. Soft tissues: No suspicious soft tissue calcifications or masses. IMPRESSION: No acute radiographic findings. If pain persists, followup imaging in 5-7 days is recommended to exclude occult fracture. Dictated by: Brandy Muñoz M.D. on 09/01/2023 at 10:41 Approved by: Brandy Muñoz M.D. on 09/01/2023 at 10:42
== END ==
PROVIDERS: PCP Family Medicine; Referring Provider Nurse Practitioner Family; Visit Provider Nurse Practitioner Family
DX: M89.8X5 Other specified disorders of bone, thigh (principal)
CPT/HCPCS: 73552

== ENCOUNTER → 2023-10-17 10:00 | Outpatient (CLI) | payer MEDICARE, BC, SELFPAY ==
--- NOTE | 2023-10-17 10:02 | DI.MG.S_ITS ---
BILATERAL DIGITAL SCREENING MAMMOGRAM 3D/2D WITH CAD: 10/17/2023 CLINICAL: Routine screening. Family history of breast cancer. Comparison is made to exams dated: 08/11/2022 mammogram, 08/02/2021 mammogram, and 11/28/2019 mammogram - [facility]. Both breasts are heterogeneously dense, which may obscure small masses (category c / 51-75% glandular tissue). Current study was also evaluated with a Computer Aided Detection (CAD) system. There are benign calcifications in both breasts. There are mole markers on both breasts. No significant masses, calcifications, or other findings are seen in either breast. There has been no significant interval change. IMPRESSION: BENIGN There is no mammographic evidence of malignancy. A 1 year screening mammogram is recommended. Based on the Tyrer Cuzick model (a risk assessment model) the patient's lifetime risk is 15.5% and her 10 year risk is 12.8%. According to the ACR, ACS, and NCCN guidelines, an annual breast MRI exam along with mammogram is recommended if the patient's lifetime risk is 20% or greater. This exam was interpreted at Station ID: [id number]. NOTE: For mammograms, a report in lay terms will be sent to the patient. Approximately 15% of breast malignancies will not be visualized mammographically. In the management of a palpable breast mass, a negative mammogram must not discourage biopsy of a clinically suspicious lesion. Electronically Signed By: Saravanan alfonso/shaquille:10/17/2023 12:52:52 letter sent: Normal Exam ACR BI-RADS Category 2: Benign Finding(s) 3342F
== END ==
PROVIDERS: PCP Family Medicine; Referring Provider Family Medicine; Visit Provider Family Medicine
DX: Z12.31 Encounter for screening mammogram for malignant neoplasm of breast (principal); Z80.3 Family history of malignant neoplasm of breast
CPT/HCPCS: 77063; 77067

== ENCOUNTER 2024-04-12 08:00 | Emergency (ER) | payer MEDICARE, BC, SELFPAY ==
[2024-04-12 08:11] VITALS: BP 182/84; PULSE 83; RESP 20; TEMP 36.6; O2SAT 98; BMI 28.8
--- NOTE | 2024-04-12 08:33 | ED_ITS ---
HPI - Back Pain/Injury General Chief Complaint: Back Pain/Injury Stated Complaint: back and shoulder pain Time Seen by Provider: 04/12/24 08:11 Source: patient and family Mode of arrival: Ambulatory History of Present Illness HPI Narrative: 73-year-old female who is here for evaluation of bilateral with right being greater than left thoracic back discomfort. She states that the symptoms started a couple days ago when she woke up but they were actually all that bad. She went to go see her primary doctor for another issue and during the exam he examined her upper back. She states he pressed on an area in her back and it then triggered the discomfort which that has been persistent. Primary doctor recommended conservative measures such as massage. They have also tried anti- inflammatories without much improvement. No skin changes. It hurts for her to move her arm and also to sit up. Related Data Home Medications Medication Instructions Recorded Confirmed OMEPRAZOLE (Prilosec) 20 mg PO Q DAY ##1 03/12/07 09/01/23 metformin 500 mg tablet 500 mg PO BID 04/16/19 09/01/23 atorvastatin 20 mg tablet 20 mg PO DAILY 09/01/23 09/01/23 losartan 50 mg tablet 50 mg PO DAILY 09/01/23 09/01/23 Previous Rx's Medication Instructions Recorded cyclobenzaprine 10 mg tablet 10 mg PO TID PRN muscle spasm #21 04/12/24 tabs Allergies Allergy/AdvReac Type Severity Reaction Status Date / Time Penicillins [PENICILLINS] Allergy Intermediate Verified 09/01/23 07:24 Review of Systems Review of Systems Narrative: See HPI Patient History Medical History Hyperlipidemia Acid reflux Hypertension Diabetes mellitus Surgical History Hx of cataract surgery Social History household members: spouse Smoking Status: Never smoker Smoking Status: Never smoker alcohol intake frequency: a few times a week Substance Use Type: does not use Exam Initial Vital Signs Initial Vital Signs: Vital Signs Temperature 98 F 04/12/24 08:11 Pulse Rate 83 04/12/24 08:11 Respiratory Rate 20 04/12/24 08:11 Blood Pressure 182/84 H 04/12/24 08:11 Pulse Oximetry 98 04/12/24 08:11 Oxygen Delivery Method Room Air 04/12/24 08:11 HENMT Head: normal to inspection Resp Effort & Inspection: normal respiratory effort Back/Spine/Pelvis Other: Discomfort to palpation over the right-sided rhomboids. Skin General: no rashes or lesions noted Extrem General: capillary refill normal Course Vital Signs Vital signs: Vital Signs - 8 hr 04/12/24 08:11 Temperature 98 F Pulse Rate 83 Respiratory Rate 20 Blood Pressure 182/84 H Pulse Oximetry 98 Oxygen Delivery Method Room Air MDM - Back Pain/Injury MDM Narrative Medical decision making narrative: I did do a trigger point injection with 2 cc of 1% lidocaine without epinephrine. This is clearly a muscular issue. Recommend conservative measures to include heat/ice and massage. Will provide muscle relaxers. There are no skin changes concerning for zoster. Will discharge patient home with return precautions. Discharge Plan Departure Patient Disposition: Home Clinical Impression: Spasm of thoracic back muscle Instructions: DI for Muscle Strain Activity Restrictions/Additional Instructions: Do recommend that you continue with the conservative measures such as heat/ice and massage and light stretching. You can use the topical medications like we discussed. Muscle relaxers can be helpful as well. Please take them as directed. Return to the emergency department for new symptoms. Prescriptions: New cyclobenzaprine 10 mg tablet 10 mg PO TID PRN (Reason: muscle spasm) Qty: 21 0RF No Action atorvastatin 20 mg tablet 20 mg PO DAILY losartan 50 mg tablet 50 mg PO DAILY OMEPRAZOLE (Prilosec) 20 mg PO Q DAY Qty: 1 metformin 500 mg Tablet 500 mg PO BID Referrals: Taz Allred MD [Primary Care Provider] - Stand Alone Forms: Patient Portal/API
--- NOTE | 2024-04-12 08:38 | PC.NURSE ---
pain in between shoulder blades. no cardiac hx. no cp. pain is worse with certain movement.
== END 2024-04-12 08:40 | disposition home or self-care (01) ==
PROVIDERS: Emergency Provider Emergency Medicine; PCP Family Medicine
DX: M62.830 Muscle spasm of back (principal)
CPT/HCPCS: 99281; 99283

== ENCOUNTER → 2024-10-31 07:56 | Outpatient (CLI) | payer MEDICARE, BC, SELFPAY ==
--- NOTE | 2024-10-31 07:58 | DI.MG.S_ITS ---
BILATERAL DIGITAL SCREENING MAMMOGRAM 3D/2D WITH CAD: 10/31/2024 CLINICAL: Routine screening. Family history of breast cancer. Comparison is made to exams dated: 10/17/2023 mammogram, 08/11/2022 mammogram, and 08/02/2021 mammogram - [facility]. The breasts are heterogeneously dense, which may obscure small masses (category c / 51-75% glandular tissue). Current study was also evaluated with a Computer Aided Detection (CAD) system. There are benign calcifications in both breasts. There are mole markers on both breasts. No significant masses, calcifications, or other findings are seen in either breast. There has been no significant interval change. IMPRESSION: BENIGN There is no mammographic evidence of malignancy. A 1 year screening mammogram is recommended. Based on the Tyrer Cuzick model (a risk assessment model) the patient's lifetime risk is 14.5% and her 10 year risk is 13.2%. According to the ACR, ACS, and NCCN guidelines, an annual breast MRI exam along with mammogram is recommended if the patient's lifetime risk is 20% or greater. This exam was interpreted at Station ID: [id number]. NOTE: For mammograms, a report in lay terms will be sent to the patient. Approximately 15% of breast malignancies will not be visualized mammographically. In the management of a palpable breast mass, a negative mammogram must not discourage biopsy of a clinically suspicious lesion. Electronically Signed By: Miguel Ángel [email or web address]:10/31/2024 17:41:13 letter sent: Normal Exam ACR BI-RADS Category 2: Benign
== END ==
PROVIDERS: PCP Family Medicine; Referring Provider Family Medicine; Visit Provider Family Medicine
DX: Z12.31 Encounter for screening mammogram for malignant neoplasm of breast (principal); R92.1 Mammographic calcification found on diagnostic imaging of breast; R92.333 Mammographic heterogeneous density, bilateral breasts; Z80.3 Family history of malignant neoplasm of breast
CPT/HCPCS: 77063; 77067